=== PATIENT | female | born 1955 | race African-American/Black ===

== ENCOUNTER 2018-08-30 23:34 | Emergency (ER) | payer MEDICAID ==
--- NOTE | 2018-08-30 23:41 | EDPHY ---
H & P Time Seen by Provider: 08/30/18 23:41 HPI/ROS: HPI CHIEF COMPLAINT: Alcohol intoxication HISTORY OF PRESENT ILLNESS: Patient is a very pleasant 62-year-old female, she has a history of hypertension, as well as alcoholism. She presents to the emergency room after she was not allowed into the local senior care as she was too intoxicated. She told them she had right-sided chest pain and 911 was called. She currently reports she does not have any chest pain, but early in the evening she states she had over 24 hr of right-sided chest pain. She is unable to describe to me. She has no chest pain at this time. Denies shortness of breath or pleuritic pain. She arrives to the emergency room is highly intoxicated with alcohol, smells of alcohol slurring her speech. She states she drank whiskey today. Denies any abdominal pain, denies shortness of breath. Past Medical History: Alcoholism and hypertension. Past Surgical History: Denies recent surgery. Social History: Homeless with daily alcohol use. Smokes tobacco. Family History: Noncontributory ROS REVIEW OF SYSTEMS: Limited due to acute alcohol intoxication. Exam Constitutional intoxicated, smells of alcohol, slurring speech, triage nursing summary reviewed, vital signs reviewed, awake/alert. Eyes normal conjunctivae and sclera, EOMI, PERRLA. HENT normal inspection, atraumatic, moist mucus membranes, no epistaxis, neck supple/ no meningismus, no raccoon eyes. Respiratory clear to auscultation bilaterally, normal breath sounds, no respiratory distress, no wheezing. Cardiovascular chest wall nontender palpation, rate normal, regular rhythm, no murmur, no edema, distal pulses normal. Gastrointestinal soft, non-tender, no rebound, no guarding, normal bowel sounds, no distension, no pulsatile mass. Genitourinary no CVA tenderness. Musculoskeletal no midline vertebral tenderness, full range of motion, no calf swelling, no tenderness of extremities, no meningismus, good pulses, neurovascularly intact. Skin pink, warm, & dry, no rash, skin atraumatic. Neurologic intoxicated, slurring speech. awake, alert and oriented x 3, AAOx3 , moves all 4 extremities equally, motor intact, sensory intact, CN II-XII intact, normal cerebellar, normal vision. Psychiatric normal mood/affect. Heme/Lymph/Immune no lymphadenopathy. Differential Diagnosis: Includes but is not limited to in a particular order acute alcohol intoxication, dehydration, electrolyte disturbance, esophagitis, gastritis, peptic ulcer disease, acute coronary syndrome, pneumonia, pneumothorax, PE Medical Decision Making: Plan for this patient IV establishment cardiac exercise physiologist obtain EKG, troponin, chest x-ray, alcohol level, basic labs, IV fluids , basic blood work. Patient is intoxicated highly here in emergency room. She will need to sober and then I will re-evaluate her. Re-evaluation: EKG interpretation by me on record in [facility] system. Impression time of EKG 2348, sinus rhythm rate of 97 no signs of acute ischemia. There are Q- waves noted V1 V2. No old EKG to compare this to in the system. Serum Alcohol level 283 at 12:30 a.m.. Troponin 0.01. D-dimer negative. Patient highly intoxicated with alcohol at 1:17 a.m. Resting comfortably infectious sleeping. Magnesium noted to be low. Will replete with IV Mag. 6:24 a.m. patient has been sleeping throughout the night in the emergency room. She has been here for close to 6 hr. No chest pain or shortness of breath. Vital signs have been stable. Her initial troponin was negative as well as a negative D-dimer. Patient's EKG sinus rhythm without any acute ischemia. She did have Q-waves V1 V2. But no ST elevation. ED x-ray chest one view: Negative for acute cardiopulmonary disease. EKG interpretation by me on record in [facility] system. Impression time of EKG 6:29 a.m., sinus rhythm rate of 80, Q-waves noted V1 V2 but no appreciable acute ischemia no ST elevation. No ST depression. 6:50 a.m. patient re-evaluated resting comfortably without any complaints. Denies chest pain or shortness of breath. She is requesting noted detox. She slept for close To 6 hr in the emergency room. She initially came with an alcohol level 283. Sober nicely. She is now sober without any complaints. Troponin 0.01. I encouraged patient stop drinking alcohol. Patient requesting go to detox. Source: Patient, EMS Constitutional: Initial Vital Signs Temperature (C) 36.7 C 08/30/18 23:39 Heart Rate 94 08/30/18 23:39 Respiratory Rate 16 08/30/18 23:39 Blood Pressure 133/103 H 08/30/18 23:39 O2 Sat (%) 96 08/30/18 23:39 O2 Delivery Mode Room Air Allergies/Adverse Reactions: No Known Allergies Allergy (Unverified 08/30/18 23:37) Home Medications: Medication Instructions Recorded Unobtainable 08/30/18 Medical Decision Making - Data Points Laboratory Results: Laboratory Results 08/30/18 23:41 08/30/18 23:41 08/31/18 08/31/18 08/30/18 06:37 06:23 23:52 WBC RBC Hgb Hct MCV MCH MCHC RDW Plt Count MPV Neut % (Auto) Lymph % (Auto) [place] % (Auto) Eos % (Auto) Baso % (Auto) Nucleat RBC Rel Count Absolute Neuts (auto) Absolute Lymphs (auto) Absolute Monos (auto) Absolute Eos (auto) Absolute Basos (auto) Absolute Nucleated RBC Immature Gran % Immature Gran # D-Dimer Sodium Potassium Chloride Carbon Dioxide Anion Gap BUN Creatinine Estimated GFR Glucose Calcium Magnesium Total Bilirubin Conjugated Bilirubin Unconjugated Bilirubin AST ALT Alkaline Phosphatase POC Troponin I 0.01 ng/mL ng/mL 0.01 ng/mL ng/mL (0.00-0.08) (0.00-0.08) Total Protein Albumin Lipase Urine Opiates Screen Pending Urine Barbiturates Pending Ur Phencyclidine Scrn Pending Ur Amphetamine Screen Pending U Benzodiazepines Scrn Pending Urine Cocaine Screen Pending U Marijuana (THC) Screen Pending Ethyl Alcohol 08/30/18 08/30/18 08/30/18 23:41 23:41 23:41 WBC 7.22 10^3/uL 10^3/uL (3.80-9.50) RBC 4.06 10^6/uL L 10^6/uL (4.18-5.33) Hgb 13.3 g/dL g/dL (12.6-16.3) Hct 39.2 % % (38.0-47.0) MCV 96.6 fL fL (81.5-99.8) MCH 32.8 pg pg (27.9-34.1) MCHC 33.9 g/dL g/dL (32.4-36.7) RDW 14.2 % % (11.5-15.2) Plt Count 329 10^3/uL 10^3/uL (150-400) MPV 10.1 fL fL (8.7-11.7) Neut % (Auto) 41.2 % % (39.3-74.2) Lymph % (Auto) 47.1 % H % (15.0-45.0) [place] % (Auto) 9.6 % % (4.5-13.0) Eos % (Auto) 1.1 % % (0.6-7.6) Baso % (Auto) 0.6 % % (0.3-1.7) Nucleat RBC Rel Count 0.0 % % (0.0-0.2) Absolute Neuts (auto) 2.98 10^3/uL 10^3/uL (1.70-6.50) Absolute Lymphs (auto) 3.40 10^3/uL H 10^3/uL (1.00-3.00) Absolute Monos (auto) 0.69 10^3/uL 10^3/uL (0.30-0.80) Absolute Eos (auto) 0.08 10^3/uL 10^3/uL (0.03-0.40) Absolute Basos (auto) 0.04 10^3/uL 10^3/uL (0.02-0.10) Absolute Nucleated RBC 0.00 10^3/uL 10^3/uL (0-0.01) Immature Gran % 0.4 % % (0.0-1.1) Immature Gran # 0.03 10^3/uL 10^3/uL (0.00-0.10) D-Dimer 0.39 ug/mLFEU ug/mLFEU (0.00-0.50) Sodium 145 mEq/L mEq/L (135-145) Potassium 4.0 mEq/L mEq/L (3.5-5.2) Chloride 107 mEq/L mEq/L (97-110) Carbon Dioxide 25 mEq/l mEq/l (22-31) Anion Gap 13 mEq/L mEq/L (6-14) BUN 13 mg/dL mg/dL (7-23) Creatinine 0.7 mg/dL mg/dL (0.6-1.0) Estimated GFR > 60 Glucose 83 mg/dL mg/dL (70-100) Calcium 9.5 mg/dL mg/dL (8.5-10.4) Magnesium 1.1 mg/dL L mg/dL (1.6-2.3) Total Bilirubin 0.2 mg/dL mg/dL (0.1-1.4) Conjugated Bilirubin 0.0 mg/dL mg/dL (0.0-0.5) Unconjugated Bilirubin 0.2 mg/dL mg/dL (0.0-1.1) AST 44 IU/L IU/L (14-46) ALT 42 IU/L IU/L (9-52) Alkaline Phosphatase 86 IU/L IU/L (38-126) POC Troponin I Total Protein 7.6 g/dL g/dL (6.3-8.2) Albumin 4.6 g/dL g/dL (3.5-5.0) Lipase 208 IU/L IU/L (23-300) Urine Opiates Screen Urine Barbiturates Ur Phencyclidine Scrn Ur Amphetamine Screen U Benzodiazepines Scrn Urine Cocaine Screen U Marijuana (THC) Screen Ethyl Alcohol 283 mg/dL H mg/dL (0-10) Medications Given: Discontinued Medications Sodium Chloride (Ns) 1,000 mls @ 0 mls/hr IV EDNOW ONE; Wide Open PRN Reason: Protocol Stop: 08/30/18 23:47 Last Admin: 08/30/18 23:59 Dose: 1,000 mls Magnesium Sulfate (Magnesium Sulf 2 Gm (Premix)) 50 mls @ 50 mls/hr IV EDNOW ONE Stop: 08/31/18 02:15 Last Admin: 08/31/18 01:21 Dose: 50 mls Propofol (Diprivan) 100 mg IVP EDNOW ONE Stop: 08/30/18 23:54 Last Admin: 08/31/18 00:21 Dose: Not Given Point of Care Test Results: Chemistry 08/31/18 08/30/18 06:37 23:52 POC Troponin I 0.01 ng/mL ng/mL 0.01 ng/mL ng/mL (0.00-0.08) (0.00-0.08) Departure - Departure Disposition: Home, Routine, Self-Care Clinical Impression: Alcohol intoxication, Hypomagnesemia Condition: Good Instructions: Alcohol Intoxication (ED), Abuse of Alcohol (ED), Hypomagnesemia (ED) Referrals: NONE *PRIMARY CARE P,. [Primary Care Provider] - As per Instructions
[2018-08-30] MEDS ORDERED: NS 1,000 ML IV ONE (23:46)
[2018-08-30] MEDS ORDERED: PROPOFOL 200 MG/20 ML VIAL IVP ONE (23:53)
[2018-08-30 23:59] LABS: PLATELET COUNT 329 10^3/uL (150-400)
[2018-08-31] MEDS ORDERED: MAGNESIUM SULF 2 GM/WATER 50 ML IV ONE (01:16)
[2018-08-31 06:46] VITALS: BP 117/76
--- NOTE | 2018-09-03 06:32 | CPEKG ---
Test Reason : OPEN Blood Pressure : / mmHG Vent. Rate : 080 BPM Atrial Rate : 080 BPM P-R Int : 181 ms QRS Dur : 076 ms QT Int : 400 ms P-R-T Axes : 078 062 060 degrees QTc Int : 462 ms Sinus rhythm Right atrial enlargement Probable anteroseptal infarct, old Confirmed by Frankie Vargas ([id number]) on 09/03/2018 6:31:12 AM Referred By: Frankie Vargas Confirmed By:Frankie Vargas
--- NOTE | 2018-09-03 06:32 | CPEKG ---
Test Reason : OPEN Blood Pressure : / mmHG Vent. Rate : 097 BPM Atrial Rate : 097 BPM P-R Int : 175 ms QRS Dur : 083 ms QT Int : 374 ms P-R-T Axes : 073 061 055 degrees QTc Int : 475 ms Sinus rhythm Right atrial enlargement Probable anteroseptal infarct, old Confirmed by Frankie Vargas ([id number]) on 09/03/2018 6:31:13 AM Referred By: Frankie Vargas Confirmed By:Frankie Vargas
== END 2018-08-31 07:25 | disposition home or self-care (01) ==
DX: F10.920 Alcohol use, unspecified with intoxication, uncomplicated (principal); E83.42 Hypomagnesemia; I10 Essential (primary) hypertension
CPT/HCPCS: 80305; 84484-ER; 96365; G0480; J3475